=== PATIENT | female | born 1995 | race Caucasian/White ===

== ENCOUNTER 2022-09-16 12:10 | Emergency (ER) | payer MEDICAID ==
[~2022-09-16] VITALS: Ht 167.6 cm; Wt 65.8 kg
--- NOTE | 2022-09-16 12:15 | NUR ---
BIB FAMILY FROM HOME WITH C/O SEVERE BACK HEAD PAIN AND NAUSEA FOR ONE WEEK. PT STATES HER HEADACHE IS SVERE - 10/10 PAIN. HX - N/A PT IS AAXO4, NAD, VSS, PT BREATHING EVEN AND UNLABORED ON RA, PT ON ELEVATOR RUNNER SHOWING NSR. SAFETY PRECAUTIONS AND COMFORT MEASURES IN PLACE. PENDING MD GUERRIER AND ORDERS.
--- NOTE | 2022-09-16 12:17 | NUR ---
DR. HERMAN AT BEDSIDE EXAMINING THE PT.
[2022-09-16 12:30] VITALS: BP_SYST 123
[2022-09-16] MEDS ORDERED: MECLIZINE HCL 25 MG TABLET (ANITVERT) PO ONE (13:15)
[2022-09-16] MEDS ORDERED: METOCLOPRAMIDE HCL 10 MG/2 ML VIAL IVP ONE (13:15)
[2022-09-16 13:53] LABS: BASOPHILS % (AUTO) 0.7 % (0.0-2.0); EOSINOPHILS % (AUTO) 0.6 % (0.0-4.0); HEMATOCRIT 37.6 % (36-48); HEMOGLOBIN 12.9 g/dL (12.0-16.0); LYMPHOCYTES # (AUTO) 1.7 K/uL (1.0-5.5); LYMPHOCYTES % (AUTO) 27.2 % (20.5-51.5); MEAN CORPUSCULAR HEMOGLOBIN 31 pg (27-31); MEAN CORPUSCULAR HGB CONC 34 % (32-36); MEAN CORPUSCULAR VOLUME 90 fL (79.0-98.0); MONOCYTES # (AUTO) 0.4 K/uL (0.0-1.0); MONOCYTES % (AUTO) 6.8 % (1.7-9.3); NEUTROPHILS # (AUTO) 3.9 K/uL (1.8-7.7); NEUTROPHILS % (AUTO) 64.7 % (40.0-70.0); PLATELET COUNT (AUTO) 217 K/uL (130-430); RED BLOOD CELL COUNT(AUTO) 4.18 MIL/uL (4.2-6.2); RED CELL DISTRIBUTION WIDTH 13.6 % (9.0-15.0); WHITE BLOOD COUNT (AUTO) 6.1 K/uL (4.8-10.8)
[2022-09-16 14:05] LABS: ANION GAP 10 (5-15); CALCIUM 8.6 mg/dL (8.4-11.0); CHLORIDE 103 mmol/L (98-107); CREATININE 0.61 mg/dL (0.55-1.30); GFR AFRICAN AMERICAN 151 mL/min (>90); GLUCOSE 85 mg/dL (70-99); UREA NITROGEN, BLOOD 10 mg/dL (8-21)
[2022-09-16 14:20] LABS: ALANINE AMINOTRANSFERASE 11 U/L (12-78); ASPARTATE AMINOTRANSFERASE 12 U/L (10-37); THYROID STIMULATING HORMONE 0.97 uIu/mL (0.34-4.82); TOTAL BILIRUBIN 0.6 mg/dL (0.0-1.0)
[2022-09-16 14:36] LABS: ACETONE, SERUM NEGATIVE (NEGATIVE)
[2022-09-16] MEDS ORDERED: MECL-261 PO (15:00)
[2022-09-16 15:04] LABS: BILIRUBIN,URINE NEGATIVE (NEGATIVE); BLOOD, URINE NEGATIVE (NEGATIVE); CLARITY/URINE CLEAR (CLEAR); COLOR,URINE YELLOW (YELLOW); GLUCOSE,URINE NEGATIVE (NEGATIVE); KETONES,URINE TRACE (NEGATIVE); LEUKOCYTE ESTERASE ,URINE 1+ (NEGATIVE); NITRITE, URINE NEGATIVE (NEGATIVE); PROTEIN URINE NEGATIVE (NEGATIVE); UROBILINOGEN,URINE 0.2 (0.2-1.0)
[2022-09-16 15:18] VITALS: BP_SYST 118
--- NOTE | 2022-09-16 15:18 | NUR ---
PT MEDICALLY CLEARED FOR DISCHARGE. D/C INSTRUCTIONS GIVEN TO PT. PT TO FOLLOW-UP WITH PCP WITHIN 1-3 DAYS AND TO RETURN TO ED FOR WORSENING S/S. PT VERBALZIED UNDERSTANDING. PT AAX04, NAD, WRISTBAND REMOVED. PT AMBULATORY WITH STEADY GAIT. PT LEFT ED WITH ALL BELONGINGS.
[2022-09-16 15:38] LABS: BACTERIA,URINE FEW /HPF (None Seen); MUCUS,URINE None Seen /LPF (None Seen); RBC,URINE 0-3 /HPF (0-3); WBC,URINE 0-3 /HPF (0-3)
== END 2022-09-16 15:18 | disposition home or self-care (01) ==
LOC: SED 12:10
DX: R42 Dizziness and giddiness (principal); R51.9 Headache, unspecified; R11.0 Nausea; Z79.899 Other long term (current) drug therapy
CPT/HCPCS: 99285; 96374; 70450; 71045; 80053; 81000; 82009; 82550; 84703; 84439; 84443; 85025; 84484; 36415; 93005; 76376; 81025; 83605; J8597; J2765